=== PATIENT | female | born 1960 | race Two or more races ===

== ENCOUNTER 2023-06-27 10:50 | Emergency (ER) | payer MEDICAID ==
[~2023-06-27] VITALS: Ht 170.2 cm; Wt 83.7 kg
[2023-06-27 10:56] VITALS: TEMP 98.3
[2023-06-27 11:12] VITALS: BP 129/73; PULSE 114; RESP 18; O2SAT 96
[2023-06-27] MEDS ORDERED: ALBUAER3 IN (12:15)
[2023-06-27] MEDS ORDERED: BENZ100C97 PO (12:15)
[2023-06-27] MEDS ORDERED: DOXY1CAP57 PO (12:15)
[2023-06-27] MEDS ORDERED: PRED20TA2 PO (12:15)
== END 2023-06-27 12:16 | disposition home or self-care (01) ==
LOC: ER 10:50
DX: J20.9 Acute bronchitis, unspecified (principal)
CPT/HCPCS: 71046

== ENCOUNTER 2023-07-08 06:35 | Emergency (ER) | payer MEDICAID ==
[~2023-07-08] VITALS: Ht 170.2 cm; Wt 83.3 kg
[~2023-07-08 06:35] MED LIST: ALBUAER3 IN; BENZ100C97 PO; DOXY1CAP57 PO; PRED20TA2 PO
[2023-07-08 07:48] VITALS: BP 137/78; PULSE 85; RESP 15; TEMP 97.2; O2SAT 95
[2023-07-08] MEDS ORDERED: METH-1182 PO (08:52)
== END 2023-07-08 08:56 | disposition home or self-care (01) ==
LOC: ER 06:35
DX: S86.911A Strain of unspecified muscle(s) and tendon(s) at lower leg level, right leg, initial encounter (principal); W22.8XXA Striking against or struck by other objects, initial encounter; Y93.89 Activity, other specified; Y92.89 Other specified places as the place of occurrence of the external cause; Y99.8 Other external cause status
CPT/HCPCS: 93971

== ENCOUNTER 2023-11-26 07:37 | Emergency (ER) | payer MEDICAID ==
[~2023-11-26 07:37] MED LIST changes: +METH-1182 PO
[2023-11-26 08:48] VITALS: BP 148/62; PULSE 105; RESP 18; TEMP 97; O2SAT 98
[2023-11-26] MEDS: ACETAMINOPHEN 500 MG TAB PO ONE (09:37)
[2023-11-26] MEDS ORDERED: NAPR-746 PO (09:46)
== END 2023-11-26 09:50 | disposition home or self-care (01) ==
LOC: ER 07:37
DX: S16.1XXA Strain of muscle, fascia and tendon at neck level, initial encounter (principal); S46.911A Strain of unspecified muscle, fascia and tendon at shoulder and upper arm level, right arm, initial encounter; I10 Essential (primary) hypertension; W07.XXXA Fall from chair, initial encounter; Y93.89 Activity, other specified; Y92.89 Other specified places as the place of occurrence of the external cause; Y99.8 Other external cause status
CPT/HCPCS: 72040; 73010

== ENCOUNTER 2023-12-01 09:51 | Emergency (ER) | payer MEDICAID ==
[~2023-12-01] VITALS: Ht 170.2 cm; Wt 85.6 kg
[~2023-12-01 09:51] MED LIST changes: +NAPR-746 PO
[2023-12-01 10:16] LABS: Urine Bacteria None Seen /hpf (None Seen)
[2023-12-01 10:39] LABS: Urine Blood Negative /uL (Negative); Urine Clarity Clear (Clear); Urine Color Light-Yellow (Yellow); Urine Protein, UAD 1+ (Negative); Urine Specific Gravity 1.019 (1.001-1.035); Urine Urobilinogen Normal (Negative); Urine WBC 4 /hpf (0 - 5); Urine pH 8.5 (5.0-9.0)
[2023-12-01 10:50] LABS: Basophils # (auto) 0 10 ^3/uL (0-0.2); Basophils % (auto) 0.6 % (0.0-2.0); Eosinophils # (auto) 0.2 10 ^3/uL (0-0.8); Eosinophils % (auto) 2.4 % (0.0-7.0); Hematocrit 35.8 % (36.0-46.0); Hemoglobin 12.1 g/dL (12.2-16.2); Lymphocytes # (auto) 1.2 10 ^3/uL (0.4-5.4); Lymphocytes % (auto) 18.3 % (10.0-50.0); Mean Corpuscular Hemoglobin 29.1 pg (28.0-32.0); Mean Corpuscular Hgb Conc. 33.7 g/dL (32.0-36.0); Mean Corpuscular Volume 86.4 fL (80.0-100.0); Monocytes # (auto) 0.5 10 ^3/uL (0-1.3); Monocytes % (auto) 8.5 % (0.0-12.0); Neutrophils # (auto) 4.5 10 ^3/uL (1.6-8.6); Neutrophils % (auto) 70.2 % (37.0-80.0); Platelet Count (auto) 257 10^3/uL (140-450); Red Blood Cells 4.14 10^6/uL (4.0-5.20); Red Cell Distribution Width 14.8 % (11.8-14.3); White Blood Cell 6.4 10^3/uL (4.4-10.8)
[2023-12-01 10:52] LABS: Alanine Aminotransferase 20 U/L (7-40); Albumin 4.3 g/dL (3.2-4.8); Alkaline Phosphatase 86 U/L (46-116); Anion Gap 4 (5-15); Aspartate Aminotransferase 19 U/L (13-40); BUN/Creatinine Ratio 12.8 (10.0-20.0); Blood Urea Nitrogen 11 mg/dL (9-23); Calcium 9.4 mg/dL (8.7-10.4); Carbon Dioxide 30 mmol/L (20-31); Chloride 109 mmol/L (98-107); Glucose 112 mg/dL (74-106); Potassium 4.2 mmol/L (3.5-5.1); Sodium 143 mmol/L (136-145)
[2023-12-01 10:53] LABS: Bilirubin, Total 0.4 mg/dL (0.2-1.0)
[2023-12-01 11:18] LABS: Lipase 35 U/L (12-53)
[2023-12-01 11:28] LABS: INR 0.97 (0.9-1.15); Partial Thromboplastin Time 28.5 SEC (24.5-34.5); Prothrombin Time 10.3 sec (9.3-11.8)
[2023-12-01 11:44] VITALS: TEMP 97.7
[2023-12-01] MEDS: ONDANSETRON ODT 4 MG TAB PO ONE (11:55)
[2023-12-01] MEDS ORDERED: ZOFR4T PO (12:50)
[2023-12-01 13:05] VITALS: BP 152/88; PULSE 62; RESP 14; O2SAT 99
[2023-12-01] MEDS: PANTOPRAZOLE 40 MG TAB PO ONE (13:51)
[2023-12-01] MEDS: LIDOCAINE VISCOUS 2% 15ML UD PO ONE (13:51)
[2023-12-01] MEDS: SUCRALFATE 1 GM TAB PO ONE (13:51)
== END 2023-12-01 14:04 | disposition home or self-care (01) ==
LOC: ER 09:51
DX: K80.20 Calculus of gallbladder without cholecystitis without obstruction (principal); E78.5 Hyperlipidemia, unspecified; I10 Essential (primary) hypertension; Z79.52 Long term (current) use of systemic steroids; Z91.148 Patient's other noncompliance with medication regimen for other reason
CPT/HCPCS: 36415; 74176; 80053; 81001; 82962; 83605; 83690; 83880; 84484; 85025; 85610; 85730; 93005; 99284; Q0162

== ENCOUNTER 2024-08-12 12:15 | Emergency (ER) | payer MEDICAID ==
[~2024-08-12] VITALS: Ht 170.2 cm; Wt 82.8 kg
[~2024-08-12 12:15] MED LIST changes: +ZOFR4T PO
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
[2024-08-12 12:55] LABS: Basophils # (auto) 0 10 ^3/uL (0-0.2); Basophils % (auto) 0.4 % (0.0-2.0); Eosinophils # (auto) 0.1 10 ^3/uL (0-0.8); Eosinophils % (auto) 1.3 % (0.0-7.0); Hematocrit 37.4 % (36.0-46.0); Hemoglobin 12.4 g/dL (12.2-16.2); Lymphocytes % (auto) 14.5 % (10.0-50.0); Mean Corpuscular Hemoglobin 29.2 pg (28.0-32.0); Mean Corpuscular Hgb Conc. 33.2 g/dL (32.0-36.0); Mean Corpuscular Volume 87.9 fL (80.0-100.0); Monocytes # (auto) 0.7 10 ^3/uL (0-1.3); Monocytes % (auto) 9.6 % (0.0-12.0); Neutrophils # (auto) 5.2 10 ^3/uL (1.6-8.6); Neutrophils % (auto) 74.2 % (37.0-80.0); Platelet Count (auto) 297 10^3/uL (140-450); Red Blood Cells 4.25 10^6/uL (4.0-5.20); Red Cell Distribution Width 14.4 % (11.8-14.3)
[2024-08-12 13:14] LABS: Alanine Aminotransferase 28 U/L (7-40); Albumin 4.6 g/dL (3.2-4.8); Alkaline Phosphatase 67 U/L (46-116); Anion Gap 8 (5-15); Aspartate Aminotransferase 44 U/L (<34); Bilirubin, Total 0.4 mg/dL (0.2-1.0); Blood Urea Nitrogen 16 mg/dL (9-23); Calcium 10.1 mg/dL (8.7-10.4); Carbon Dioxide 26 mmol/L (20-31); Chloride 110 mmol/L (98-107); Glucose 110 mg/dL (74-106); Potassium 4.3 mmol/L (3.5-5.1); Sodium 144 mmol/L (136-145)
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
--- NOTE | 2024-08-12 13:29 | DVH ---
CT CERVICAL WITHOUT CONTRAST INDICATION: [facility] EXAM DATE: 08/12/2024 12:43 PM COMPARISON: None RADIATION DOSE: CTDIvol: 17.16 mGy, DLP: 392.6 mGy*cm PROCEDURE: Utilizing the CT scanner, contiguous axial images were obtained through the cervical spine . Coronal and sagittal reformatted images were then generated. All CT scans at this medical facility are performed using dose modulation techniques as appropriate t o a performed exam including the following: Automated exposure control was utilized; adjustment of th e MA and/or KV according to patient size; and use of iterative reconstruction technique. FINDINGS: Alignment at the craniocervical junction is maintained. The cortical margins are intact. Th e vertebral body heights and cervical alignment are normal. The facet joints show normal alignment wi thout fracture. The intervertebral disc spaces are narrow. The paraspinal soft tissues appear normal. On axial images: the disc, thecal sac, neural foramina and facet joints are unremarkable. IMPRESSION: No cervical spine fracture or subluxation.
[2024-08-12 14:23] LABS: Urine Bacteria FEW /hpf (None Seen); Urine Blood Negative /uL (Negative); Urine Clarity Clear (Clear); Urine Color Light-Yellow (Yellow); Urine Protein, UAD Negative (Negative); Urine Specific Gravity 1.016 (1.001-1.035); Urine Squamous Epithelial Cell FEW /hpf (<5); Urine Urobilinogen Normal (Negative); Urine WBC 111 /HPF (0-5); Urine pH 6.5 (5.0-9.0)
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
[2024-08-12] MEDS ORDERED: NITR-87 PO (15:16)
[2024-08-12 15:39] VITALS: BP 160/67; PULSE 71; RESP 18; TEMP 98; O2SAT 98
== END 2024-08-12 15:44 | disposition home or self-care (01) ==
LOC: ER 12:15
DX: T14.8XXA Other injury of unspecified body region, initial encounter (principal); N39.0 Urinary tract infection, site not specified; I10 Essential (primary) hypertension; V89.2XXA Person injured in unspecified motor-vehicle accident, traffic, initial encounter; Y93.89 Activity, other specified; Y92.410 Unspecified street and highway as the place of occurrence of the external cause; Y99.8 Other external cause status
CPT/HCPCS: 36415; 70450; 71045; 72125; 80053; 81001; 84484; 85025